=== PATIENT | male | born 1995 | race Caucasian/White ===

== ENCOUNTER 2018-08-29 23:41 | Emergency (ER) | payer SELFPAY ==
[~2018-08-29] VITALS: Ht 190.5 cm; Wt 93.2 kg
[2018-08-30 02:43] LABS: BASOPHILS % (AUTO) 0.5 % (0.0-2.0); EOSINOPHILS % (AUTO) 7.7 % (1.0-6.0); HEMATOCRIT 45.9 % (41-53); HEMOGLOBIN 15.8 g/dL (13.5-17.5); LYMPHOCYTES # (AUTO) 3.1 K/uL (1.0-4.8); LYMPHOCYTES % (AUTO) 38.1 % (22.0-44.0); MEAN CORPUSCULAR HEMOGLOBIN 31.1 pg (26.0-34.0); MEAN CORPUSCULAR HGB CONC 34.3 G/dL (31.0-37.0); MEAN CORPUSCULAR VOLUME 91 fL (80-100); MONOCYTES # (AUTO) 0.6 K/uL (0.1-1.0); MONOCYTES % (AUTO) 7.8 % (2.0-9.0); NEUTROPHILS # (AUTO) 3.7 K/uL (1.8-7.7); NEUTROPHILS % (AUTO) 45.9 % (40.0-70.0); PLATELET COUNT (AUTO) 146 K/uL (150-450); RED BLOOD CELL COUNT(AUTO) 5.07 MIL/uL (4.50-5.90); RED CELL DISTRIBUTION WIDTH 12.7 % (11.5-14.5)
[2018-08-30] MEDS ORDERED: NAPROXEN 250 MG TABLET PO ONE (02:45)
[2018-08-30 02:51] LABS: ANION GAP 5 mmol/L (8-16); CALCIUM, TOTAL 9.1 mg/dL (8.8-10.5); CARBON DIOXIDE 32 mmol/L (22-29); CHLORIDE 103 mmol/L (98-107); CREATININE 0.95 mg/dL (0.60-1.30); GLOMERULAR FILTR. RATE CALC > 60 mL/min (>60); GLUCOSE,RANDOM 94 mg/dL (70-110); POTASSIUM 3.9 mmol/L (3.5-5.1); SODIUM SERUM 140 mmol/L (136-145); UREA NITROGEN, BLOOD 14 mg/dL (7-18)
[2018-08-30 03:16] LABS: ALANINE AMINOTRANSFERASE 57 U/L (12-78); ALBUMIN 3.9 g/dL (3.4-5.0); ALKALINE PHOSPHATASE 74 U/L (46-116); ASPARTATE AMINOTRANSFERASE 26 U/L (15-37); BILIRUBIN,TOTAL 0.4 mg/dL (0.1-1.0); CREATINE KINASE, TOTAL ONLY 176 U/L (39-308); LIPASE 101 U/L (73-393); TOTAL PROTEIN, SERUM 7.4 g/dL (6.4-8.2)
[2018-08-30 03:54] VITALS: BP 120/70
== END 2018-08-30 03:56 | disposition home or self-care (01) ==
LOC: EMS 23:43
DX: R07.89 Other chest pain (principal)
CPT/HCPCS: 85379; 93005

== ENCOUNTER 2025-02-15 16:22 | Emergency (ER) | payer MEDICAID ==
[~2025-02-15] VITALS: Ht 190.5 cm; Wt 105.0 kg
[2025-02-15 19:14] VITALS: BP 116/71; PULSE 68; RESP 18; TEMP 97.3; O2SAT 97
[2025-02-15] MEDS ORDERED: IBUP-1554 PO (19:32)
[2025-02-15] MEDS ORDERED: ACET-66 PO (19:32)
[2025-02-15] MEDS: IBUPROFEN 600 MG TABLET PO ONE (19:39)
== END 2025-02-15 20:50 | disposition home or self-care (01) ==
LOC: EMS 16:22
DX: S63.502A Unspecified sprain of left wrist, initial encounter (principal); Z90.49 Acquired absence of other specified parts of digestive tract; X58.XXXA Exposure to other specified factors, initial encounter; Y93.89 Activity, other specified; Y92.89 Other specified places as the place of occurrence of the external cause; Y99.8 Other external cause status
CPT/HCPCS: 99283